=== PATIENT | female | born 1990 ===

== ENCOUNTER 2018-08-25 08:28 | Emergency (ER) | payer SELFPAY ==
[2018-08-25 08:37] VITALS: BP 160/92; PULSE 63; RESP 18; TEMP 98.8; O2SAT 100; BMI 35.2
--- NOTE | 2018-08-25 09:10 | C.PDOC ---
History Of Present Illness 28 y/o female presents to ED with c/o sore throat since she woke up this morning. Patient denies fever, chills, cough, sob, chest pain, nausea, vomiting or any other complaints at this time. Chief Complaint (Nursing): ENT Problem History Per: Patient History/Exam Limitations: no limitations Onset/Duration Of Symptoms: Hrs Current Symptoms Are (Timing): Still Present Location Of Pain: Throat Associated Symptoms: Sore Throat. denies: Fever, Chills Past Medical History Reviewed: Historical Data, Nursing Documentation, Vital Signs Vital Signs: Last Vital Signs Temp 98.8 F 08/25/18 08:37 Pulse 63 08/25/18 08:37 Resp 18 08/25/18 08:37 BP 160/92 H 08/25/18 08:37 Pulse Ox 100 08/25/18 08:37 - Medical History PMH: No Chronic Diseases Surgical History: Appendectomy Family History: States: No Known Family Hx - Social History Hx Tobacco Use: No Hx Alcohol Use: No Hx Substance Use: No - Immunization History Hx Tetanus Toxoid Vaccination: No Hx Influenza Vaccination: No Hx Pneumococcal Vaccination: No Review Of Systems Constitutional: Negative for: Fever, Chills ENT: Positive for: Throat Pain. Negative for: Throat Swelling Cardiovascular: Negative for: Chest Pain Respiratory: Negative for: Cough, Shortness of Breath Gastrointestinal: Negative for: Nausea, Vomiting Skin: Negative for: Rash Physical Exam - Physical Exam Appears: Non-toxic, No Acute Distress Skin: Warm, Dry, No Rash Head: Atraumatic, Normacephalic Eye(s): bilateral: Normal Inspection Ear(s): Bilateral: Normal Oral Mucosa: Moist Throat: Erythema, Exudate (right tonsillar), No Drooling, No Mass Neck: Supple Lymphatic: Adenopathy (right anterior ) Cardiovascular: Rhythm Regular Respiratory: Normal Breath Sounds, No Rales, No Rhonchi, No Wheezing Gastrointestinal/Abdominal: Soft, No Tenderness, No Guarding, No Rebound Neurological/Psych: Oriented x3, Normal Speech, Normal Cognition ED Course And Treatment O2 Sat by Pulse Oximetry: 100 (RA) Pulse Ox Interpretation: Normal Disposition - Disposition Referrals: [facility] [Outside] [facility] [Outside] Disposition: HOME/ ROUTINE Disposition Time: 09:05 Condition: GOOD Additional Instructions: WANDER MADDOX, thank you for letting us take care of you today. Your provider was Obi Hayes DO and you were treated for THROAT PAIN. The emergency medical care you received today was directed at your acute symptoms. If you were prescribed any medication, please fill it and take as directed. It may take several days for your symptoms to resolve. Return to the Emergency Department if your symptoms worsen, do not improve, or if you have any other problems. Please contact your doctor or call one of the physicians/clinics you have been referred to that are listed on the Patient Visit Information form that is included in your discharge packet. Bring any paperwork you were given at discharge with you along with any medications you are taking to your follow up visit. Our treatment cannot replace ongoing medical care by a primary care provider outside of the emergency department. Thank you for allowing the [facility] team to be part of your care today. Follow up with a primary care doctor or our clinic this week for re-evaluation and further management. Prescriptions: Amoxicillin 875 mg PO BID #14 tablet Ibuprofen [Motrin] 600 mg PO Q6 PRN #20 tab PRN Reason: Pain, Moderate (4-7) Instructions: Sore Throat, Adult (DC) Forms: Advisor Client Match (French) - Clinical Impression Clinical Impression: Acute bacterial tonsillitis - Scribe Statement The provider has reviewed the documentation as recorded by the Gonzálezibisiah Quiroga All medical record entries made by the Gonzálezibisiah were at my direction and personally dictated by me. I have reviewed the chart and agree that the record accurately reflects my personal performance of the history, physical exam, medical decision making, and the department course for this patient. I have also personally directed, reviewed, and agree with the discharge instructions and disposition.
== END 2018-08-25 09:20 | disposition home or self-care (01) ==
LOC: C.ER 08:28
DX: J03.90 Acute tonsillitis, unspecified (principal)